=== PATIENT | male | born 1990 | race Caucasian/White ===

== ENCOUNTER 2021-05-23 23:03 | Emergency (ER) | payer SELFPAY ==
[~2021-05-23] VITALS: Ht 177.8 cm; Wt 79.0 kg
[2021-05-24] MEDS ORDERED: LEVETIRACETAM 1000MG PREMIX 100 ML IV ONE (02:15)
[2021-05-24 02:54] LABS: BASOPHILS % 0.3 % (0.0-2.0); EOSINOPHILS % 0.7 % (0.0-5.0); HEMATOCRIT. 44.7 % (42.0-52.0); HEMOGLOBIN. 15.3 g/dL (14.0-18.0); LYMPHOCYTES % 19.4 % (20.0-50.0); MEAN CORPUSCULAR HEMOGLOBIN 29.1 pg (28.0-32.0); MEAN CORPUSCULAR VOLUME 85.2 fL (80.0-94.0); MEAN PLATELET VOLUME 8.5 fl (7.4-10.4); MONOCYTES % 4.6 % (2.0-8.0); PLATELET 232 x1000/uL (130-400); RED BLOOD CELL COUNT 5.25 mill/uL (4.7-6.1); RED CELL DISTRIBUTION WIDTH 15.2 % (11.6-14.6)
[2021-05-24 04:06] LABS: CHLORIDE 111 mEq/L (98-107)
[2021-05-24 04:10] LABS: ETHANOL BLOOD < 10 mg/dL
[2021-05-24] MEDS ORDERED: KEPP500 PO (06:46)
[2021-05-24 08:51] VITALS: BP 116/77
== END 2021-05-24 10:30 | disposition home or self-care (01) ==
LOC: ER 23:34
DX: R56.9 Unspecified convulsions (principal); I10 Essential (primary) hypertension; Z88.6 Allergy status to analgesic agent; Z86.39 Personal history of other endocrine, nutritional and metabolic disease
CPT/HCPCS: 36415; 70450; 80053; 80320; 83605; 84443; 85025; 93005; 96365; 99285; J1953; G0480

== ENCOUNTER 2021-07-01 19:52 | Emergency (ER) | payer SELFPAY ==
[~2021-07-01] VITALS: Ht 180.3 cm; Wt 91.0 kg
[~2021-07-01 19:52] MED LIST: KEPP500 PO
[2021-07-01 22:42] LABS: BASOPHILS % 0.4 % (0.0-2.0); EOSINOPHILS % 1.1 % (0.0-5.0); HEMATOCRIT. 43.4 % (42.0-52.0); MEAN CORPUSCULAR HEMOGLOBIN 29.4 pg (28.0-32.0); MEAN PLATELET VOLUME 8.4 fl (7.4-10.4); NEUTROPHILS % 55.5 % (40.0-76.0); PLATELET 196 x1000/uL (130-400); RED CELL DISTRIBUTION WIDTH 14.3 % (11.6-14.6)
[2021-07-01 22:47] LABS: CHLORIDE 109 mEq/L (98-107)
[2021-07-01 22:51] LABS: ETHANOL BLOOD < 10 mg/dL
[2021-07-02 00:08] LABS: CLARITY URINE CLEAR (CLEAR); COLOR URINE YELLOW (YELLOW); KETONES URINE TRACE (NEGATIVE); LEUKOCYTE ESTERASE URINE NEGATIVE (NEGATIVE); NITRITE URINE NEGATIVE (NEGATIVE); OCCULT BLOOD URINE NEGATIVE (NEGATIVE); PROTEIN URINE NEGATIVE (NEGATIVE); SPECIFIC GRAVITY URINE 1.021 (1.005-1.030)
[2021-07-02 00:23] LABS: *AMPHETAMINES SCREEN URINE NEGATIVE (NEGATIVE); *BARBITURATES SCREEN URINE NEGATIVE (NEGATIVE); *BENZODIAZEPINES SCREEN URINE NEGATIVE (NEGATIVE); *COCAINE SCREEN URINE NEGATIVE (NEGATIVE)
[2021-07-02 00:24] LABS: CANNABINOID URINE SCREEN NEGATIVE (NEGATIVE); METHADONE URINE SCREEN NEGATIVE (NEGATIVE); OPIATES URINE SCREEN NEGATIVE (NEGATIVE); PHENCYCLIDINE URINE SCREEN NEGATIVE (NEGATIVE)
[2021-07-02 03:58] VITALS: BP 110/65
== END 2021-07-02 04:00 | disposition home or self-care (01) ==
LOC: ER 19:52
DX: G40.909 Epilepsy, unspecified, not intractable, without status epilepticus (principal); I10 Essential (primary) hypertension; E03.9 Hypothyroidism, unspecified; Z91.81 History of falling
CPT/HCPCS: 36415; 71045; 80053; 80305; 80320; 81003; 83605; 85025; 99285; G0480